=== PATIENT | male | born 1965 | race Caucasian/White ===

== ENCOUNTER 2017-02-04 16:33 | Inpatient (IN) | payer MEDICARE, OTHER ==
[~2017-02-04] VITALS: Ht 172.7 cm; Wt 88.0 kg
[2017-02-04] VITALS (7 sets, daily range): BP systolic 81–107; BP diastolic 40–64; PULSE 71–100; RESP 16–18; O2SAT 94–100
[~2017-02-04 16:33] MED LIST: AMLO10TA3 PO; ASPI-973 PO; CARV25TA2 PO; CINA60TA PO; COLC0.6C3 PO; ERGO500050 PO; FRSM80T PO; HYDR-3090 PO; MYCO500T PO; NEPHVIT PO; OMEG1000 PO; TACR1CAP PO; TAMS0.4C29 PO; ZYL100 PO; [UNRECOGNIZED DRUG - CODE] PO
--- NOTE | 2017-02-04 16:42 | ED.REPORT ---
HPI-Syncope Date of Service Feb 04, 2017 ED Provider: Agustin Medellin DO Pt is a 51 y.o. male with a hx of renal failure on dialysis who presents to the ED via EMS after a syncopal episode prior to arrival. Pt states that he had just got home from dialysis and he began to feel lightheaded, he then experienced a syncopal episode causing him to fall to the ground. When he fell he believes he hit his head and landed on his left should. Pt reports associated head, neck, and left shoulder pain. He denies chest pain, SOB, nausea , vomiting, and diarrhea. Nursing Notes Stated Complaint: FELL Chief Complaint: Multiple Trauma/Fall Nursing Notes Reviewed: Yes Allergies: Coded Allergies: diphenhydramine (Verified Adverse Reaction, Severe, anxiety, 02/04/17) Scheduled Aspirin (Aspirin) 81 Mg Tablet 81 MG PO DAILY Cholecalciferol (Vitamin D3) (Vitamin D) 50,000 Unit Capsule 50,000 UNIT PO qweek Cinacalcet HCl (Sensipar) 60 Mg Tablet 90 MG PO DAILY Lanthanum Carb Chew (Fosrenol Chew) 1,000 Mg Chew 1,000 MG PO TIDWM Mycophenolate Mofetil (Cellcept) 500 Mg Tablet 500 MG PO DAILY [employer]-3 Fatty Acids (Fish Oil Concentrate) 1,000 Mg Capsule 1,000 MG PO DAILY Tacrolimus (Prograf) 1 Mg Capsule 2 MG PO BID Vit B Cmplx 3/FA/Vit C/Biotin (Isabel-Dorene Rx Tablet) 1 Each Tablet 1 EACH PO DAILY Vitamin E Acetate (Vitamin E) 400 Unit Capsule 400 UNIT PO DAILY Scheduled PRN Acetaminophen (Acetaminophen) 325 Mg Tablet 325-650 MG PO HS PRN PRN For Pain General Time Seen by Provider: 16:42 Chief Complaint Lost consciousness Syncope Description: Single episode Hx Obtained From: Patient Arrived By: Ambulance Onset Occurred: Just prior to arrival Context of Onset: Occurred at home Progression Since Onset: Resolved Location: : Head: Neck Quality: Painful Severity: Current: Severe Past Medical History Past Medical History History of DVT Reports: Hypertension Reports: Renal failure Past Surgical History Transplanted kidney in 2002 Smoking History Former Smoker Social History Alcohol Use: Denies alcohol use Drug Use: Denies drug use Ambulatory Status Independent Review of Systems Respiratory: Denies: Shortness of breath Cardiovascular: Denies: Chest pain GI: Denies: Diarrhea, Nausea, Vomiting Musculoskeletal: Reports: Joint pain (Left shoulder), Neck pain Neurologic: Reports: Headache, Lightheaded, Syncope Complete sys rev & neg: except as marked. Physical Exam Initial Vital Signs Vital Signs (First) Date Time Temp Pulse Resp B/P Pulse Ox O2 Delivery O2 Flow Rate FiO2 02/04/17 16:41 36.2 97 17 90/64 99 Room Air Initial VS: Reviewed Abdomen / GI: Soft, Non-tender, No distention Skin: Warm, Dry, No cyanosis Psychiatric: Mood/affect normal, Behavior normal, Normal thought content General/Constitutional: Awake, Alert, Well appearing, Well developed, Well hydrated, Well nourished, Not toxic appearing Respiratory / Chest: Atraumatic, Breath sounds NL, Breath sounds = bilat, No respiratory distress, No rales, No rhonchi, No wheezing, No retractions, No stridor Cardiovascular: Heart rate NL, Regular rhythm, Peripheral circulation NL Heart Sounds / Murmur: Positive: Systolic murmur present.. (ejection murmur) Lower Extremity / Pelvis / MS: Atraumatic, Inspection NL, Neurologic intact, Vascular intact Neurologic: Oriented X3, Speech NL Head / Eyes: Normocephalic, PERRL Trauma - General: Positive: Laceration (2cm laceration over left eyebrow) Neck: Atraumatic Neck / Muscle Tenderness: Positive: Midline tenderness mid Upper Extremity / MS: No deformity, Neurologic intact, Vascular intact Upper Ext Brief Normals: Shoulder R exam normal, Arm R exam normal Clavicle / Shoulder Girdle: Positive: Clavicle tender L... Left Shoulder: Positive: Tenderness present... Interpretation & Diagnostics Lab Results Interpretation Result Diagram: 02/04/17 1645 02/04/17 1645 Test 02/04/17 16:45 White Blood Count 9.2th/mm3 (3.8-10.1) Red Blood Count 4.77mil/mm3 (4.40-5.80) Hemoglobin 16.3g/dL (13.8-17.2) Hematocrit 46.6% (41.0-50.0) Mean Corpuscular Volume 97.7fL (81-100) Mean Corpuscular Hemoglobin 34.2pg (27.0-35.0) Mean Corpuscular Hemoglobin Concent 35.0% (32.0-37.0) Red Cell Distribution Width 13.9% (12.3-15.4) Platelet Count 198bil/L (150-400) Neutrophils (%) (Auto) 55.6% (40-74) Lymphocytes (%) (Auto) 35.1% (14-46) Monocytes (%) (Auto) 6.7% (4-12) Eosinophils (%) (Auto) 1.6% (0-5) Basophils (%) (Auto) 0.7% (0-3) Sodium Level 138mEq/L (134-144) Potassium Level 3.3mEq/L (3.5-5.2) Chloride Level 89mEq/L (97-108) Carbon Dioxide Level 21mmol/L (18-29) Blood Urea Nitrogen 23mg/dL (6-24) Creatinine 7.91mg/dL (0.76-1.27) Estimat Glomerular Filtration Rate 8mL/min (>59) Glucose Level 168mg/dL (60-99) Calcium Level 8.8mg/dL (8.5-10.1) Magnesium Level 1.8mg/dL (1.6-2.6) Total Bilirubin 0.5mg/dL (0.0-1.2) Aspartate Amino Transf (AST/SGOT) 28U/L (0-50) Alanine Aminotransferase (ALT/SGPT) 32U/L (0-44) Alkaline Phosphatase 78U/L (25-150) Troponin T < 0.010ug/L (0.0-0.011) Total Protein 8.8g/dL (6.4-8.4) Albumin 5.0g/dL (3.4-5.0) X-Ray Chest Interpretation Chest Xray Interpretation: IMPRESSION: Acute disease is not seen in the chest. Dictated by: Christoph Box M.D. on 02/04/2017 at 17:20 Approved by: Christoph Box M.D. on 02/04/2017 at 17:21 X-Ray Interpretation Xray Interpretation: IMPRESSION: Nondisplaced left clavicular fracture. Best seen on the CT of the cervical spine. Dictated by: Christoph Box M.D. on 02/04/2017 at 17:28 Approved by: Christoph Box M.D. on 02/04/2017 at 17:28 Study Performed: PROCEDURE: X-RAY LEFT SHOULDER, MINIMUM TWO VIEWS ([id number]) Xray Interpretation: IMPRESSION: Mid shaft left clavicular fracture, minimally angulated. No fracture margin displacement or additional injury is seen. Dictated by: Troy Morrell M.D. on 02/04/2017 at 16:32 Approved by: Troy Morrell M.D. on 02/04/2017 at 16:34 Study Performed: PROCEDURE: X-RAY LEFT CLAVICLE, COMPLETE ([id number]) CT Head Interpretation IMPRESSION: No intracranial abnormality. Dictated by: Christoph Box M.D. on 02/04/2017 at 17:21 Approved by: Christoph Box M.D. on 02/04/2017 at 17:23 CT C-Spine Interpretation IMPRESSION: No acute bony abnormality in the cervical spine. Moderate disc degenerative disease at C5-6 and C6-7. Acute fracture seen in the margins of the lower cervical spine axial images involving the left clavicle. Dictated by: Christoph Box M.D. on 02/04/2017 at 17:23 Approved by: Christoph Box M.D. on 02/04/2017 at 17:27 Procedures Laceration Management Time: 18:02 Procedure Performed by: ED physician Consent / Setup / Site Prep: Informed consent provided, Consent from patient , Time-out performed, Hand hygiene observed, Stand sterile technique Location of Wound: 2.5cm laceration over left eyebrow Wound Length: 2 cm Local Anesthesia: Lidocaine w epi 1% Wound Preparation: Betadine Irrigation: Copious Foreign Body Explore / Removal: Explored for foreign body Undermining / Margins: Undermining minimal Repair Skin: ___ O (5), Nylon # Sutures - Skin: 7 Closure Layers: 1 Suture Technique: Simple Post-Procedure / Complications: Antibiotic oint applied, Dressing applied, No complications, Condition improved, Tolerated procedure well, Patient stable Re-Eval/Medical Decision Med Decision/Clinical Course 51-year-old renal failure patient presents after suffering a syncopal episode. He was dialyzed today. He got home and felt dizzy and passed out hitting his head suffering a laceration. He also fell down and broke his left collarbone. He is found to be hypotensive in the field and again in the emergency department. He was carefully fluid resuscitated. He was then started on oral medications to raise his blood pressure. I fixed his wound. His EKG does not look like he was having an DC. He will be admitted to PCU for further care and observation. Re-Evaluation/Progress : Time of Eval: 18:02 Patient Status: Condition improved Re-Evaluation/Progress Note: Pt rechecked. Laceration management performed. Consultation : Referral / Consult Name: Taurus Riggs MD Call Returned at: 17:50 Dye Range Operator: Will see patient, Agrees with eval, Agrees with plan, Accepts admit Note: Discussed pt condition. Accepts admit. Discharge & Departure Shift Change Sign-Out Response to Therapy: Improved Impression: Primary Impression: Syncope Syncope type: unspecified Qualified Code: R55 - Syncope and collapse Additional Impressions: Hypotension Hypotension type: hemodialysis-associated hypotension Qualified Code: I95.3 - Hypotension of hemodialysis Closed head injury Encounter type: initial encounter Qualified Code: S09.90XA - Unspecified injury of head, initial encounter Laceration Fx clavicle Encounter type: initial encounter Clavicle location: lateral end Fracture type: closed Fracture alignment: displaced Laterality: left Qualified Code : S42.032A - Displaced fracture of lateral end of left clavicle, initial encounter for closed fracture Disposition: ADMITTED TO HOSPITAL Discharge Condition All VS Reviewed: Yes Referrals: Luan Guo MD (PCP) Crit Care Except Billable Proc Time Spent: 30-74 minutes Services Performed: Patient management by me, Time spent at bedside, Reviewing test results, Reviewing imaging, Discussing patient care, Documentation in record, Time with fam/surrogate Scribe Attestation Portions of this note were transcribed by Remington Fowler. I, Dr. Medellin personally performed the history, physical exam and medical decision-making; I reviewed and confirmed the accuracy of the information in the transcribed note. Signed by : Dena Barros, 02/04/17 and 190. copies to: Luan Guo MD, Todd P DO Feb 04, 2017 16:42 REMINGTON FOWLER Feb 04, 2017 17:08
[2017-02-04] MEDS ORDERED: 0.9% Sodium Chloride 500 ML IV ONE ×2 (16:45→17:35)
[2017-02-04] MEDS ORDERED: TdaP Vaccine 0.5 mL Inj IM ONE (16:50)
[2017-02-04] MEDS: fentaNYL-PF 50 mCg/mL 2 mL Inj IVPUSH PRN ×3 (16:54→20:35)
[2017-02-04 16:56] LABS: BASOPHILS % (AUTO) 0.7 % (0-3); EOSINOPHILS % (AUTO) 1.6 % (0-5); MONOCYTES % (AUTO) 6.7 % (4-12); Mean Corpuscular Hemoglobin 34.2 pg (27.0-35.0); Mean Corpuscular Volume 97.7 fL (81-100); NEUTROPHILS % (AUTO) 55.6 % (40-74); Platelet Count 198 bil/L (150-400)
--- NOTE | 2017-02-04 17:22 | DRSVH ---
PROCEDURE: X-RAY CHEST ONE VIEW, PORTABLE ([id number]) INDICATIONS: syncope, left collar bone injury TECHNIQUE: One view of the chest was acquired. COMPARISON: [facility], , CHEST 2VW, 05/31/2012, 17:11. FINDINGS: Surgical changes and devices: combustion analyst leads are seen over the chest. Vascular clips in the ga llbladder bed. Lungs and pleura: No pleural effusions or pneumothorax. Lungs are clear. Mediastinum: Mediastinal contours appear normal. Heart size is normal. Bones and chest wall: No suspicious bony lesions. Old healed clavicular fractures. Overlying soft ti ssues appear unremarkable. IMPRESSION: Acute disease is not seen in the chest. Dictated by: Christoph Box M.D. on 02/04/2017 at 17:20 Approved by: Christoph Box M.D. on 02/04/2017 at 17:21
--- NOTE | 2017-02-04 17:25 | DRSVH ---
PROCEDURE: CT BRAIN WITHOUT CONTRAST ([id number]) INDICATIONS: syncope, head injury TECHNIQUE: Noncontrast 4.5 mm thick angled axial sections acquired from the foramen magnum to the vertex, with c oronal reformats. COMPARISON: [facility], CT, BRAIN W/O CONTRAST, 02/18/2010, 15:51. FINDINGS: Image quality: Good CSF spaces: Basal cisterns are patent. No extra-axial fluid collections. Ventricles are normal in size and shape. Brain: No midline shift. No intracranial masses or hemorrhage. Cornelius-white matter interface is norm al. Skull and face: Calvarium and visualized facial bones are intact, without suspicious lesions. Sinuses: Visualized sinuses and mastoids are clear. IMPRESSION: No intracranial abnormality. Dictated by: Christoph Box M.D. on 02/04/2017 at 17:21 Approved by: Christoph Box M.D. on 02/04/2017 at 17:23
--- NOTE | 2017-02-04 17:29 | DRSVH ---
PROCEDURE: CT CERVICAL SPINE WITHOUT CONTRAST ([id number]) INDICATIONS: syncope, head injury TECHNIQUE: Noncontrast 3 mm thick sections acquired from the skull base to the T4 level. Sagittal and coronal r eformats were then constructed. For radiation dose reduction, the following was used: automated exp osure control, adjustment of mA and/or kV according to patient size. COMPARISON: None. FINDINGS: Image quality: Excellent. Bones: On the margin of the image there is a mid shaft left clavicular fracture. No fracture or dislo cation of the cervical spine is seen. There is moderate disc degenerative disease at the C5-6 and C6- 7 levels. Visualized superior ribs are intact. Soft tissues: Prevertebral soft tissues are normal in thickness. No paravertebral hematomas. No ap ical pneumothoraces. Bilateral to nsilliths are present. IMPRESSION: No acute bony abnormality in the cervical spine. Moderate disc degenerative disease at C5 -6 and C6-7. Acute fracture seen in the margins of the lower cervical spine axial images involving the left clavic le. Dictated by: Christoph Box M.D. on 02/04/2017 at 17:23 Approved by: Christoph Box M.D. on 02/04/2017 at 17:27
--- NOTE | 2017-02-04 17:30 | DRSVH ---
PROCEDURE: X-RAY LEFT SHOULDER, MINIMUM TWO VIEWS ([id number]) INDICATIONS: FALL TECHNIQUE: 3 views of the shoulder were acquired. COMPARISON: [facility], CT, CT CERVICAL SPINE WO CON, 02/04/2017, 16:59. FINDINGS: Bones: Acute nondisplaced mid clavicular shaft fracture. No fracture of the scapula or humerus or vis ualized ribs. No suspicious bony lesions. Visualized ribs appear intact. Soft tissues: No suspicious soft tissue calcifications. IMPRESSION: Nondisplaced left clavicular fracture. Best seen on the CT of the cervical spine. Dictated by: Christoph Box M.D. on 02/04/2017 at 17:28 Approved by: Christoph Box M.D. on 02/04/2017 at 17:28
[2017-02-04 17:33] LABS: Magnesium 1.8 mg/dL (1.6-2.6)
--- NOTE | 2017-02-04 17:35 | DRSVH ---
PROCEDURE: X-RAY LEFT CLAVICLE, COMPLETE ([id number]) INDICATIONS: syncope, left collar bone injury TECHNIQUE: 2 views of the clavicle were acquired. COMPARISON: [facility], CT, CT CERVICAL SPINE WO CON, 02/04/2017, 16:59. [facility], CR, XR SHOULDER MIN 2VW LT, 02/04/2017, 16:32. FINDINGS: Bones: No dislocations. No suspicious bony lesions. There is a mid shaft left clavicular fracture, which was initially visualized at the margin of the image field of view during cervical CT scanning earlier today. This appears in apposition, and likely is only slightly angulated. No additional tra shira to the seen. Soft tissues: No suspicious soft tissue calcifications. IMPRESSION: Mid shaft left clavicular fracture, minimally angulated. No fracture margin displacement or additional injury is seen. Dictated by: Troy Morrell M.D. on 02/04/2017 at 16:32 Approved by: Troy Morrell M.D. on 02/04/2017 at 16:34
[2017-02-04] MEDS ORDERED: Lidocaine 1%-Epi 1:100,000 20 mL Inj ONE (17:38)
[2017-02-04 17:41] LABS: TROPONIN T < 0.010 ug/L (0.0-0.011)
[2017-02-04] MEDS ORDERED: Ondansetron 2 mg/mL 2 mL Inj IVPUSH PRN (18:05)
--- NOTE | 2017-02-04 18:37 | PCM.HPMED ---
Subjective Date of Service Feb 04, 2017 Primary Provider: Admitting Physician: Primary Care Physician: Luan Guo MD Attending Physician: Chief Complaint: Syncope s/p fall History of Present Illness: Pt is a 51 y.o. male with a hx of ESRD on HD who presented to the hospital after he had 3 episodes of syncope today . Patient had dialysis today and was doing fine . He stated he insisted with staff to complete his dialysis time because for some reason the nurse wanted to cut it shorter this time . He stated he felt fine after dialysis and drove home . Later he started feeling lightheaded, then while trying to stand up form sitting position he experienced a syncopal episode causing him to fall to the ground. He lost consciousness a couple of minutes and had another episode while trying to stand . He had a third episode trying to reach the phone and was able to call his mother to come over after the 3rd episode. EMT was called and he was brought to the hospital. Patient suffered a laceration of his dyana-orbital area on the left and a left clavicle fracture. His systolic BP was 80 . His only complaints is shoulder pain otherwise denies chest pain, shortness of breath , no palpitation, no abdominal pain, no nausea , no vomiting no fever, no chills Review of Systems: Review of system x 10 point is negative except for fall and syncope as described in HPI Allergies Coded Allergies: diphenhydramine (Verified Adverse Reaction, Severe, anxiety, 02/04/17) Home Medications Allopurinol (Allopurinol) 100 Mg Tablet 100 MG PO DAILY Amlodipine (Amlodipine) 10 Mg Tablet 10 MG PO DAILY Aspirin (Aspirin) 81 Mg Tablet 81 MG PO DAILY Carvedilol (Carvedilol) 25 Mg Tablet 25 MG PO BID Cinacalcet HCl (Sensipar) 60 Mg Tablet 90 MG PO DAILY Ergocalciferol (Vitamin D2) (Drisdol) 50,000 Unit Capsule 50,000 UNIT PO Q7D Furosemide (Furosemide) 80 Mg Tab 80 MG PO BID Lanthanum Carb Chew (Fosrenol Chew) 750 Mg Tab.chew 750 MG PO TID Mycophenolate Mofetil (Cellcept) 500 Mg Tablet 500 MG PO BID [place]-3 Fatty Acids (Fish Oil Concentrate) 1,000 Mg Capsule 1,000 MG PO TID Tacrolimus (Prograf) 1 Mg Capsule 1 MG PO BID Tamsulosin ER (Tamsulosin ER) 0.4 Mg Cap.er.24h 0.4 MG PO DAILY Vitamin B Complex/Vit C (Isabel-Dorene Tablet) 1 Tab Tab 1 TAB PO DAILY PMH History of DVT, Hypertension, ESDR on HD Surgical History Transplanted kidney in 2002 Family History Family history reviewed and is non contributor to the present illness Social History Hx Alcohol Use: No Hx Substance Use: No Hx Tobacco Use: No Smoking Status: Former Smoker Living Arrangement: Alone Exam Vital Signs Vital Sign - Last Date Time Temp Pulse Resp B/P Pulse Ox O2 Delivery O2 Flow Rate FiO2 02/04/17 16:41 36.2 97 17 90/64 99 Room Air Exam *Medical Exam Exam Vital Signs Vital Sign - Last Date Time Temp Pulse Resp B/P Pulse Ox O2 Delivery O2 Flow Rate FiO2 02/04/17 18:56 36.8 77 16 107/63 98 Room Air General: Alert, chronically ill appearing . NAD Eyes: PERRLA, EOMI Neck: Supple, No Thyromegaly Chest & Lungs: Clear to auscultation & percussion, No adventitious breath sounds Cardiovascular: Regular Rate/Rhythm, Normal S1, Normal S2, No Murmurs/Rubs/ Gallops Abdomen: Non-tender, Non-distended, Benign, No masses, No hepatosplenomegaly, Other (Papable mass at left Lower quadrant compatible with position of transplanted kidney ) Extremities: No cyanosis/clubbing/edma bilat, No Edema Neurological: Grossly Neurologically Intact Lab and Diagnostics Result Diagram: 02/04/17 1645 02/04/17 1645 X-Rays, CTs and MRIs Head CT scan reviewed : No intracranial abnormality. C-spine MRI : No acute bony abnormality in the cervical spine. Moderate disc degenerative disease at C5-6 and C6-7. Acute fracture seen in the margins of the lower cervical spine axial images involving the left clavicle. Chest X-ray : negative Clavicle X-ray : Mid shaft left clavicular fracture, minimally angulated. No fracture margin displacement or additional injury is seen. Assessment & Plan 1. Hypovolemic Hypotension 2. Syncope and Fall. 3. Non displaced left Clavicular Fracture ( Mid shaft left clavicular fracture , minimally angulated ) 4. ESRD on HD Telemetry monitoring . Syncope is likely due to hypovolemia . ( His symptoms started after HD) . No evidence of sepsis or infection . IVF x 1.5 liters total given in ER . I would hold any further IVF at this time . Start Midodrine 5 mg PO TID and see how he responds to that . Pain control. Orthopedist for minimally angulated clavicular fracture . He will unlikely need surgery . Neprhology consulted by ER. Continue HD while hospitalized . Home medications reviewed and reconciled . Heparin for DVT prophylaxis . Pain Evaluation: Adequate Pain Control VTE Prophylaxis: Sub-Q Heparin (Unfractionated) Resuscitation Status: CPR: Attempt Resuscitation Time spent 75 minutes Taurus Riggs MD Feb 04, 2017 18:37 Taurus Riggs MD Feb 04, 2017 18:37
[2017-02-04] MEDS ORDERED: VIT1TABL57 PO (19:11)
[2017-02-04] MEDS ORDERED: VITA400C66 PO (19:11)
[2017-02-04] MEDS ORDERED: LANT1000 PO (19:11)
[2017-02-04] MEDS ORDERED: ACET325T51 PO (19:15)
[2017-02-04] MEDS ORDERED: CHOL500050 PO (19:27)
[2017-02-04] MEDS: Heparin 5,000 Unit/mL Inj SUBQ SCH (21:07)
[2017-02-04] MEDS ORDERED: HYDROmorphone 1 mg/mL Inj IVPUSH PRN (22:00)
[2017-02-04] MEDS: HYDROmorphone 1 mg/mL Inj IVPUSH PRN (22:18)
[2017-02-05] VITALS (8 sets, daily range): BP systolic 89–113; BP diastolic 41–74; PULSE 69–82; RESP 15–16; O2SAT 94–100
[2017-02-05] MEDS: HYDROmorphone 1 mg/mL Inj IVPUSH PRN ×2 (01:59→06:16)
[2017-02-05 05:12] LABS: BASOPHILS % (AUTO) 0.6 % (0-3); EOSINOPHILS % (AUTO) 2.6 % (0-5); MONOCYTES % (AUTO) 9.3 % (4-12); Mean Corpuscular Hemoglobin 32.8 pg (27.0-35.0); Mean Corpuscular Volume 100.5 fL (81-100); NEUTROPHILS % (AUTO) 63.2 % (40-74); Platelet Count 175 bil/L (150-400)
--- NOTE | 2017-02-05 06:25 | NUR ---
Pt upset this am. States that now the pain meds aren't working and he's really upset that the swing doctor last night forgot to order pain meds and had to get order from hospitalist. Pt states he hasn't slept all night and has been in pain. Upon hourly rounds pt was sleeping and did not request anymore prn pain meds. pt's iv went bad and he was refusing another one because the pain meds "aren't working". Persuaded pt to have a new iv started so he can get some relief.
--- NOTE | 2017-02-05 08:25 | NUR ---
Nausea patient c/o nausea and vomiting. PRN dialudid for pain was given approx 2 hours ago per patient. Student medical doctor at bed sdie and aware r/t left shoulder pain and nausea. PRN anti emetic given for nausea with effective results. patient speaking to medical student doctor r/t pain and nausea. Continue to monitor pain and nausea.
[2017-02-05] MEDS ORDERED: 0.9% Sodium Chloride 250 ML IV ONE (08:40)
[2017-02-05] MEDS: Heparin 5,000 Unit/mL Inj SUBQ SCH ×2 (09:01→22:35)
--- NOTE | 2017-02-05 12:55 | NUR ---
Evaluation completed. Please go to "Notes" then click on "Assessments and Notes" (bottom left corner of screen). Then select appropriate discipline tab on top of screen.
--- NOTE | 2017-02-05 13:35 | NUR ---
Social Work: Initial Assessment D: Per EMR review, pt is a 51 year old male admitted for syncope and hypotension. Pt is Medicare with [facility] Health Insurance Pool supplement; pt has no LTC insurance or VA benefits. PCP is Luan Guo MD. NOK is Opal Carlson, mother, . Advanced directives not completed- information provided. Readmit score not entered at this time. RIVET HAMMER MACHINE OPERATOR met with pt at bedside. Sw role and contact information provided. See initial assessment. Pt lives in a single-story home, alone, with 1 step to enter. Pt is I with ADLs and uses no DME. Pt continues to drive and has never had HH or jail. Pt states he has no concerns about d/c home when ready and that his mother will pick him up. Pt was able to work with PT and was cleared for d/c home and will likely require outpatient PT for his clavicle fracture. Pt declined outpatient PT provider list. Pt completes dialysis at [facility]. A: Pt who is I at baseline. P: Anticipate pt to discharge home via POV once medically stable; RIVET HAMMER MACHINE OPERATOR to continue to follow. GRETCHEN Lebron Addendum: 02/05/17 at 1350 by MERE LOO Amended: Links added.
--- NOTE | 2017-02-05 15:21 | CONS ---
[address] [address] CONSULTATION REPORT PATIENT: MICHEAL GORDON : 1965 MR#: [id number] ADMIT: 02/04/2017 JOB ID: [id number] CORRECTED REPORT: DATE OF SERVICE: 02/05/2017 INPATIENT HOSPITAL CONSULTATION: ICD-10 code 617116 CHIEF COMPLAINT: This is a 51-year-old male with end-stage renal disease on chronic hemodialysis. I was asked to see him in orthopedic consultation by the medical service. HISTORY OF PRESENT ILLNESS: The patient evidently underwent dialysis on February 04, 2017, went home, and had a syncopal episode. He struck his head and injured his left shoulder. The patient sustained a left clavicular fracture. The patient was admitted to the hospitalist service. He did sustain a laceration over his left eyebrow that was treated. Of significance, on prior history the patient has had a fracture of the left clavicle in about 1988 and a right clavicular fracture in 2002. These were treated closed. ALLERGIES: DIPHENHYDRAMINE. HOME MEDICATIONS: Include allopurinol, amlodipine, aspirin, carvedilol, Sensipar, vitamin D 2, Lasix, CellCept, omega fatty acids, Prograf, tamsulosin ER, vitamin B. PAST MEDICAL HISTORY: Pertinent for hypertension, end-stage renal disease on hemodialysis, and history of DVT. PAST SURGICAL HISTORY: He had a renal transplant in 2002 that lasted about eight years and then he rejected the transplant and has been back on dialysis for at least three years. FAMILY HISTORY: Pertinent for mother with severe rheumatoid arthritis. SOCIAL HISTORY: The patient does not smoke or drink at this time. Used to smoke. PHYSICAL EXAMINATION: A 172 cm male, 86 kg. The patient is alert and oriented. He has a sutured laceration over his left brow. Appears to be oriented. Vital signs temperature 36.7, pulse of 74, respirations 16, blood pressure 105/66, pulse ox 97. The patient has bruising over the left shoulder. There is no tenting of the skin. No significant prominence of the clavicle. He has some pain over the left elbow with some minor bruising and minor swelling. Motor, sensory, and vascular testing are intact left wrist and hand. He has an IV placement in his left hand. His dialysis shunt is in his right upper extremity. IMAGING: X-rays show that he has a left clavicular fracture with no significant displacement. There is also some old deformity from a prior old left clavicular fracture. LABORATORY TESTING: White count 7200, hemoglobin 13.5, hematocrit 41.3, platelet count 175,000. Sodium 134, potassium 4.0, chloride 90, CO2 of 22, BUN 35, creatinine 9.96, glucose 105, calcium 7.5. IMPRESSION: Left midshaft clavicular fracture. No significant displacement. History of prior left clavicular fracture with some old angular deformity. Left elbow contusion. Cannot rule out possible additional injury to the left elbow. PLAN: The patient is in a shoulder immobilizer. I have suggested that he may try to do at least some wrist and hand motion to avoid stiffness. As he becomes more comfortable over the next day or so it would be good for him to gently try to straighten the elbow a little so he avoids excessive stiffness in the elbow. Will do the x-rays to make sure that there is no actual fracture of the elbow. Clinically the elbow does not appear to be unstable. The patient will be discharged from the hospital when the hospitalist service deems that he is medically stable. He will need to have his sutures removed over his left brow at about 10 days and this could be done perhaps even in the [facility] or when he has dialysis. Would like to see the patient in the office sometime the week of February 15 with x-rays of the left clavicle. I have instructed the patient that this fracture in this position does not need surgical intervention. I have also suggested that he try to sleep in a reclining chair as it would be more comfortable for him. If he has any questions or concerns he certainly may contact the office. The nursing staff should call to get him a followup appointment in Orthopedics over at [facility] some time the week of February 05. CC: [facility] - Orthopedics Corrected by MADISON 02/12/17 at 11:51am Corrected patient.
[2017-02-05] MEDS ORDERED: Polyethylene Glycol (PEG) 17 Gm Powder PO PRN (15:35)
--- NOTE | 2017-02-05 15:54 | CONS ---
[address] [address] CONSULTATION REPORT PATIENT: MICHEAL GORDON : 1965 MR#: [id number] ADMIT: 02/04/2017 JOB ID: [id number] DATE OF SERVICE: 02/05/2017 NEPHROLOGY CONSULTATION: REASON FOR CONSULTATION: Management of end-stage renal disease. CHIEF COMPLAINT: Syncope and head injury. PRESENT ILLNESS: This is a 51-year-old male with significant past medical history of end-stage renal disease on hemodialysis every Wednesday, , Wednesday, failed a transplanted kidney graft, hypertension, history of DVT who came to the hospital due to episodes of syncope and head injury. The patient reported that he had dialysis yesterday without complications. They removed 3 L. He is a patient of Dr. Mario Guo and Dr. Hearn. I have contacted Dr. Hearn. Dr. Hearn stated that he had increased his estimated dry weight from 84 to 86 kg. Prior to dialysis, the patient's weight was 87.7. He left at 85.8 kg. His starting blood pressure was 176/68, and went down to 95/60 at the end of the treatment. He refused to receive any normal saline at that moment. The patient left the dialysis unit, went to [facility]. After he got home, he started feeling dizzy and lightheaded. He had two episodes of syncope. He had a head injury and has a severe left shoulder pain. She was trying to contact his mom. Later on, he was brought to the emergency department for further investigation. He was found to have injury on the left periorbital area and it was sutured. Also found to have the left clavicular fracture. The initial blood pressure was 90/64. The lowest blood pressure overnight was 81/40. He received IV fluids 1.5 L in the emergency department. During my visit today, the patient is having left shoulder pain. He requested for more pain medications. PAST MEDICAL HISTORY: 1. End-stage renal disease secondary to IgA nephropathy status post donor kidney transplant in 2002 that lasted for about eight years. Also he returned back to dialysis a couple of years ago. 2. Hypertensive nephrosclerosis. 3. History of DVT. SURGICAL HISTORY: 1. Status post right AV fistula creation. 2. donor kidney transplant in 2002. FAMILY HISTORY: No kidney disease in the family. SOCIAL HISTORY: The patient is a former smoker. Denies current use of alcohol, tobacco or illicit drugs. ALLERGIES: DIPHENHYDRAMINE. REVIEW OF SYSTEMS: Fourteen point review of system was performed. PHYSICAL EXAM: Vitals: Temperature 36.7, pulse 74, respiratory rate 16, blood pressure 105/66, O2 sat 97% room air. General appearance: Awake, alert and oriented x3. No acute distress. HEENT: No pallor. No icteric sclerae. Sutured noted above the left eyebrow. No active bleeding. No lymphadenopathy. No thyroid enlargement. No JVD. Heart: Regular rate and rhythm. Normal S1, S2. No murmurs, rubs or gallops. Lungs: Clear to auscultation bilaterally. Abdomen: Soft, active bowel sounds. Bulging area noted on the left lower quadrant where the transplanted kidney is. Extremities: No edema, cyanosis or clubbing of fingers. Right arm AV fistula with good thrill. LABORATORY: Sodium 134, potassium 4.0, chloride 90, bicarbonate 22, BUN 35, creatinine 9.96. WBC 7.2, hemoglobin 13.5. ASSESSMENT: 1. Syncope secondary to intravascular volume depletion. 2. Hypotensive. 3. Hypotension secondary to intravascular volume depletion. 4. Head injury. 5. Nondisplaced left clavicle fracture. 6. End-stage renal disease, on hemodialysis every Wednesday, , Wednesday. 7. History of IgA nephropathy. 8. Status post donor kidney transplant in 2002 complicated by graft failure eight years later. PLAN: Per renal standpoint, there is no urgency for dialysis today. We will resume his immunosuppressive medications including tacrolimus and CellCept. We will arrange for hemodialysis tomorrow without fluid removal. Recommend to give normal saline 150 cc/hour. Thank you for the consultation. We will monitor along with you.
[2017-02-05] MEDS ORDERED: 0.9% Sodium Chloride 1,000 ML IV SCH (16:00)
--- NOTE | 2017-02-05 16:21 | DRSVH ---
PROCEDURE: X-RAY LEFT ELBOW COMPLETE, MINIMUM THREE VIEWS ([id number]) INDICATIONS: LEFT ELBOW PAIN TECHNIQUE: 3 views of the elbow were acquired. COMPARISON: [facility], XA, ARTERIO VENOUS FISTULOGRAM (PNL), 08/05/2016, 11:08. FINDINGS: Bones: No fractures or dislocations. No suspicious bony lesions. Prominent bones are olecranon pro cess. Soft tissues: No elbow joint effusion. There is a large ossified body measuring roughly 2.5 cm in th e anterior medial aspect of the elbow. There is calcification and soft tissue swelling adjacent to ol ecranon. There multiple surgical clips. IMPRESSION: 1. A large calcified body in the anterior medial aspect of the elbow. If clinically indicated, advan brisa imaging such as CT or MRI may be helpful for further evaluation. 2. Prominent olecranon bone spur. There is calcification and soft tissue swelling over the olecranon consistent with enthesopathy. Dictated by: Regino Burger [facility] Interpreted: Diana Rogers MD on 02/05/2017 at 16:19 Transcribed by: RONNI on 02/05/2017 at 16:21 Approved by: Diana Rogers M.D. on 02/05/2017 at 21:01
--- NOTE | 2017-02-05 16:49 | NUR ---
Pain/Bowel Meds Pt upset at beginning of shift as he is in pain and IV Dilaudid had caused him to be nauseous. MD ordered 2mg IV push Morphine. Pt tolerated IV push with some relief, but complained of slight itching around IV site . MD ordered 50mg PO of Tramadol BID, administered 1630, with relief. Pt has not had bowel movement in 2 days, per MD, pt to start bowel medication to prevent opiod associated constipation. Pt administered 200mg PO Docusate.
--- NOTE | 2017-02-05 18:28 | PCM.PNMED ---
Subjective Date of Service Feb 05, 2017 Subjective overnight: Patient became nauseated after being given Dilaudid. No acute events otherwise noted. today: The patient states that he is feeling the pain in his clavicle. He states that his pain has not be well controlled to this point. He denies any not ongoing nausea. He states that he normally gets fairly constipated after receiving opiates in the past. Other than the pain in his clavicle he also has pain in his left elbow, and has seen orthopedic surgery who was ordered x-rays. The patient states that Dr. Alexis Giraldo will not be performing surgery on his clavicle. The patient states that he would like to stay overnight to make sure that the pain is well-controlled and received dialysis here tomorrow. Exam Vital Signs Vital Sign - Last Date Time Temp Pulse Resp B/P Pulse Ox O2 Delivery O2 Flow Rate FiO2 02/05/17 11:57 36.7 74 16 105/66 97 Room Air Intake and Output 02/04/17 02/04/17 02/05/17 Cumulative From/Thru 14:59 22:59 06:59 02/04/17 16:41 - 02/05/17 05:44 Intake Total 1000 ml 800 ml 1800 ml Balance 1000 ml 800 ml 1800 ml Intake Oral 800 ml 800 ml IV Total 1000 ml 1000 ml # Voids 1 1 Exam General: Chronically ill appearing obese gentleman in no acute distress lying in bed Eyes: PERRLA, EOMI, anicteric sclera, noninjected conjunctiva, 2020 vision in left eye, 20/25 vision in right eye, intact peripheral visual wick Neck: Supple, trachea midline, no cervical lymphadenopathy, no thyroid nodules on palpation Cardiovascular: Regular Rate/Rhythm, Normal S1, Normal S2, No Murmurs/Rubs/ Gallops Lungs: Clear to auscultation & percussion, No wheezing rales or rhonchi Abdomen: NABS, Non-tender, Non-distended, Benign, palpable mass in the left lower quadrant consistent with transplanted kidney, No hepatosplenomegaly Extremities: No cyanosis/clubbing/edema, pulses intact. Dorsalis pedis and radial arteries bilaterally, pain on palpation of the left elbow, fistula noted in right antecubital fossa as well as on right lateral upper extremity with signs of prior venipuncture Skin: Warm and dry Neurological: Cranial nerves II through XII Grossly Neurologically Intact, left upper extremity neurovascularly intact with good sensation and distal fingertips MSK: Moves all extremities spontaneously : No Wilkins in place Psych: Normal mood and affect Lab and Diagnostics Result Diagram: 02/05/1745402/05/17454 X-Rays, CTs and MRIs PROCEDURE: X-RAY LEFT ELBOW COMPLETE, MINIMUM THREE VIEWS ([id number]) IMPRESSION: 1. No displaced fracture seen. If there is continued pain, followup exam or additional imaging such as MRI or CT could be performed for further assessment. 2. Anterior soft tissue calcification likely related to arteriovenous fistula in this dialysis patient. 3. Prominent olecranon bone spur. Dictated by: Regino HORAN Interpreted: Diana Rogers MD on 02/05/2017 at 16:19 Transcribed by: RONNI on 02/05/2017 at 16:21 PROCEDURE: CT BRAIN WITHOUT CONTRAST ([id number]) IMPRESSION: No intracranial abnormality. Dictated by: Christoph Box M.D. on 02/04/2017 at 17:21 Approved by: Christoph Box M.D. on 02/04/2017 at 17:23 PROCEDURE: CT CERVICAL SPINE WITHOUT CONTRAST ([id number]) IMPRESSION: No acute bony abnormality in the cervical spine. Moderate disc degenerative disease at C5-6 and C6-7. Acute fracture seen in the margins of the lower cervical spine axial images involving the left clavicle. Dictated by: Christoph Box M.D. on 02/04/2017 at 17:23 Approved by: Christoph Box M.D. on 02/04/2017 at 17:27 PROCEDURE: X-RAY LEFT CLAVICLE, COMPLETE ([id number]) IMPRESSION: Mid shaft left clavicular fracture, minimally angulated. No fracture margin displacement or additional injury is seen. Dictated by: Troy Morrell M.D. on 02/04/2017 at 16:32 Approved by: Troy Morrell M.D. on 02/04/2017 at 16:34 Assessment & Plan Pleasant 51-year-old male presents with left clavicle fracture after acute syncopal episode due to hypovolemia hypotension post dialysis treatment for end- stage renal disease secondary to IgA nephropathy. Hospital day 2 1. Hypovolemic hypotension, present on admission, resolved - Syncope likely secondary to hypovolemic hypotension - 1.5 L IVF given in the ER on 02/04/2017, with admitting physician starting Midodrine 5 mg by mouth 3 times a day at 08:00 12:00 and 16:00, - one time 250 mL bolus on 02/05/2017 - Nephrology consulted with recommendations of normal saline at 150 mL an hour overnight 02/05/2017 - Plan for dialysis on 02/06/2017 - Patient is regularly followed by picker Dr. De Leon 2. Left clavicular fracture, present on admission, stable - Orthopedic surgery consulted from ED - Recommendations for patient to remain in left arm sling with follow-up in one week at orthopedic office - Morphine IV available wall inpatient overnight for breakthrough pain - Tramadol 50 mg available every 12 hours, discussed with pharmacology given patient's renal clearance - Tramadol appears to be controlling the patient's pain better than morphine 3. End-stage renal disease on hemodialysis, chronic, present on admission - Secondary to IgA nephropathy - Nephrology consulted - Patient will be moved to [facility] on telemetry given need for PCC beds - Consider dialysis on 02/06/2017 - Continue outpatient Cinacalcet 4. Syncope, present on admission, acute under evaluation considered stable - Again likely secondary to hypovolemic hypotension, given presentation of hypovolemia in the ED with history of low blood pressure after dialysis - Telemetry and place for possible arrhythmias - TSH to be drawn given patient's renal transplant drugs - Consider increasing patient's standard dry weight for dialysis therapy 5. History of Renal transplant, present on admission, stable - Complicated by graft failure - Continue patient's immunosuppression therapy with tacrolimus and mycophenolate - We will draw tacrolimus levels for the a.m. Bowel regimen available when necessary with docusate senna and MiraLAX recommendations for docusate given opiate constipation DVT prophylaxis with subcutaneous heparin GI prophylaxis not indicated at this time CODE STATUS full Disposition: Home tomorrow after dialysis treatment barring unforeseen circumstances. Patient has no PCP for follow-up and only uses his picker. Pain Evaluation: Adequate Pain Control GI Prophylaxis: Not indicated VTE Prophylaxis: Sub-Q Heparin (Unfractionated) Resuscitation Status: CPR: Attempt Resuscitation Attending Statement The patient was seen and examined together with Dr. Schaefer on 02/05/2017 and I agree with the history, exam and plan as outlined in the note above. . Steffen Schaefer DO Feb 05, 2017 12:37 Piotr Hope MD Feb 06, 2017 16:08
--- NOTE | 2017-02-05 19:25 | NUR ---
Transfer To [facility] room 1021 at 18:50. Report received from FRANCO Montano RN. Pt complains of shoulder pain 07/08 and asks for pain meds. Morphine given. Oriented to room, call light in hand. Eating dinner at this time. Report given to restaurant shift leader RNGustavo.
[2017-02-06 05:26] VITALS: BP 112/66; PULSE 66; RESP 17; O2SAT 98
[2017-02-06 06:06] VITALS: PULSE 71
--- NOTE | 2017-02-06 06:43 | NUR ---
Pain c/o clavicle pain x2 this shift. Prn morphine administered and effective. Currently resting without any complaints.
[2017-02-06 07:11] LABS: BASOPHILS % (AUTO) 0.6 % (0-3); EOSINOPHILS % (AUTO) 3.8 % (0-5); MONOCYTES % (AUTO) 7.8 % (4-12); Mean Corpuscular Hemoglobin 33.1 pg (27.0-35.0); NEUTROPHILS % (AUTO) 64.2 % (40-74); Platelet Count 157 bil/L (150-400)
[2017-02-06 08:10] LABS: Magnesium 2.2 mg/dL (1.6-2.6); Phosphorus 7.1 mg/dL (2.5-4.9)
[2017-02-06 08:14] VITALS: BP 106/68; PULSE 71; RESP 16; O2SAT 99
[2017-02-06 09:16] VITALS: PULSE 77
[2017-02-06] MEDS: Heparin 5,000 Unit/mL Inj SUBQ SCH (10:06)
--- NOTE | 2017-02-06 11:16 | PCM.DIMED ---
Discharge Instructions Date of Service Feb 06, 2017 Dates of Hospitalization Feb 04, 2017 at 18:29 Discharge Diagnosis Discharge Diagnosis Hypotension following dialysis, ESRD, Fall, L clavicle fracture, HTN, DVT Test Results [facility] Diagnostic Imaging Department [place], [place] [id number] Patient Name: MICHEAL GORDON MR#: [id number] Location: [facility] Ordering Phys: Alexis Giraldo MD Date of Service: 02/05/17 1434 PROCEDURE: X-RAY LEFT ELBOW COMPLETE, MINIMUM THREE VIEWS ([id number]) INDICATIONS: LEFT ELBOW PAIN TECHNIQUE: 3 views of the elbow were acquired. COMPARISON: [facility], XA, ARTERIO VENOUS FISTULOGRAM (PNL), 2015, 11:08. FINDINGS: Bones: No fractures or dislocations. No suspicious bony lesions. Prominent bones are olecranon process. Soft tissues: No elbow joint effusion. There is a large ossified body measuring roughly 2.5 cm in the anterior medial aspect of the elbow. There is calcification and soft tissue swelling adjacent to olecranon. There multiple surgical clips. IMPRESSION: 1. A large calcified body in the anterior medial aspect of the elbow. If clinically indicated, advanced imaging such as CT or MRI may be helpful for further evaluation. 2. Prominent olecranon bone spur. There is calcification and soft tissue swelling over the olecranon consistent with enthesopathy. Dictated by: Regino Burger [facility] Interpreted: Diana Rogers MD on 02/05/2017 at 16:19 Transcribed by: RONNI on 02/05/2017 at 16:21 Approved by: Diana Rogers M.D. on 02/05/2017 at 21:01 [facility] Diagnostic Imaging Department [place], [place] [id number] Patient Name: MICHEAL GORDON MR#: [id number] Location: [facility] Ordering Phys: Agustin Medellin DO Date of Service: 02/04/17 1642 PROCEDURE: CT BRAIN WITHOUT CONTRAST ([id number]) INDICATIONS: syncope, head injury TECHNIQUE: Noncontrast 4.5 mm thick angled axial sections acquired from the foramen magnum to the vertex, with coronal reformats. COMPARISON: [facility], CT, BRAIN W/O CONTRAST, 02/18/2010, 15:51. FINDINGS: Image quality: Good CSF spaces: Basal cisterns are patent. No extra-axial fluid collections. Ventricles are normal in size and shape. Brain: No midline shift. No intracranial masses or hemorrhage. Cornelius-white matter interface is normal. Skull and face: Calvarium and visualized facial bones are intact, without suspicious lesions. Sinuses: Visualized sinuses and mastoids are clear. IMPRESSION: No intracranial abnormality. Dictated by: Christoph Box M.D. on 02/04/2017 at 17:21 Approved by: Christoph Box M.D. on 02/04/2017 at 17:23 [facility] [place] [address] Patient Name: MICHEAL GORDON MR#: [id number] Location[place] [facility] [place] Ordering Phys: Agustin Medellin DO Date of Service: 02/04/17 1642 PROCEDURE: CT CERVICAL SPINE WITHOUT CONTRAST ([id number]) INDICATIONS: syncope, head injury TECHNIQUE: Noncontrast 3 mm thick sections acquired from the skull base to the T4 level. Sagittal and coronal reformats were then constructed. For radiation dose reduction, the following was used: automated exposure control, adjustment of mA and/or kV according to patient size. COMPARISON: None. FINDINGS: Image quality: Excellent. Bones: On the margin of the image there is a mid shaft left clavicular fracture. No fracture or dislocation of the cervical spine is seen. There is moderate disc degenerative disease at the C5-6 and C6-7 levels. Visualized superior ribs are intact. Soft tissues: Prevertebral soft tissues are normal in thickness. No paravertebral hematomas. No apical pneumothoraces. Bilateral to nsilliths are present. IMPRESSION: No acute bony abnormality in the cervical spine. Moderate disc degenerative disease at C5-6 and C6-7. Acute fracture seen in the margins of the lower cervical spine axial images involving the left clavicle. Dictated by: Christoph Box M.D. on 02/04/2017 at 17:23 Approved by: Christoph Box M.D. on 02/04/2017 at 17:27 [facility] [place] [address] Patient Name: MICHEAL GORDON MR#: [id number] Location: SED Ordering Phys: Agustin Medellin DO Date of Service: 02/04/17 164 PROCEDURE: X-RAY CHEST ONE VIEW, PORTABLE ([id number]) INDICATIONS: syncope, left collar bone injury TECHNIQUE: One view of the chest was acquired. COMPARISON: [facility], CR, CHEST 2VW, 05/31/2012, 17:11. FINDINGS: Surgical changes and devices: assistant professor of spanish leads are seen over the chest. Vascular clips in the gallbladder bed. Lungs and pleura: No pleural effusions or pneumothorax. Lungs are clear. Mediastinum: Mediastinal contours appear normal. Heart size is normal. Bones and chest wall: No suspicious bony lesions. Old healed clavicular fractures. Overlying soft tissues appear unremarkable. IMPRESSION: Acute disease is not seen in the chest. Dictated by: Christoph Box M.D. on 02/04/2017 at 17:20 Approved by: Christoph Box M.D. on 02/04/2017 at 17:21 [facility] Diagnostic Imaging Department [place], [place] [id number] Patient Name: MICHEAL GORDON MR#: [id number] Location: SED Ordering Phys: Agustin Medellin DO Date of Service: 02/04/171641 PROCEDURE: X-RAY LEFT CLAVICLE, COMPLETE ([id number]) INDICATIONS: syncope, left collar bone injury TECHNIQUE: 2 views of the clavicle were acquired. COMPARISON: [facility], CT, CT CERVICAL SPINE WO CON, 02/04/2017, 16 :59. [facility], CR, XR SHOULDER MIN 2VW LT, 02/04/2017, 16:32. FINDINGS: Bones: No dislocations. No suspicious bony lesions. There is a mid shaft left clavicular fracture, which was initially visualized at the margin of the image field of view during cervical CT scanning earlier today. This appears in apposition, and likely is only slightly angulated. No additional trauma to the seen. Soft tissues: No suspicious soft tissue calcifications. IMPRESSION: Mid shaft left clavicular fracture, minimally angulated. No fracture margin displacement or additional injury is seen. Dictated by: Troy Morrell M.D. on 02/04/2017 at 16:32 Approved by: Troy Morrell M.D. on 02/04/2017 at 16:34 [facility] Diagnostic Imaging Department [place] [id number] Patient Name: MICHEAL GORDON MR#: [id number] Location[place] [facility] [place] Ordering Phys: YURI MIMS MD Date of Service: 02/04/17 1639 PROCEDURE: X-RAY LEFT SHOULDER, MINIMUM TWO VIEWS ([id number]) INDICATIONS: FALL TECHNIQUE: 3 views of the shoulder were acquired. COMPARISON: [facility], CT, CT CERVICAL SPINE WO CON, 02/04/2017, 16 :59. FINDINGS: Bones: Acute nondisplaced mid clavicular shaft fracture. No fracture of the scapula or humerus or visualized ribs. No suspicious bony lesions. Visualized ribs appear intact. Soft tissues: No suspicious soft tissue calcifications. IMPRESSION: Nondisplaced left clavicular fracture. Best seen on the CT of the cervical spine. Dictated by: Christoph Box M.D. on 02/04/2017 at 17:28 Approved by: Christoph Box M.D. on 02/04/2017 at 17:28 Diet Renal Diet Activity No restrictions Call your provider Fever or Chills, Shortness of breath, Bleeding, Chest pain, Vomitting, Excessive diarrhea, Weakness (unilateral) Patient Instructions Follow-up plan Please f/u with ortho in one week, wear the sling as recommended F/U with your dialysis center Sat F/U with your order entry representative in 2 weeks F/U with PCP in 2 weeks Kelin Rosado DO Feb 06, 2017 11:15
[2017-02-06] MEDS ORDERED: MIDO5TAB PO (11:19)
[2017-02-06] MEDS ORDERED: OXYC5TAB72 PO ×2 (11:24→11:34)
--- NOTE | 2017-02-06 12:05 | NUR ---
Off Unit to Dialysis; Pt left [facility] unit to [facility] unit for dialysis prior to dc. A&Ox3, stable condition, IV SL, did receive pain medication prior to transfer. shear operator helper Letha aware and ready for pt. Pt left via bed with chart. Addendum: 02/06/17 at 1644 by JESSICA COTE RN Returned from [facility] for dialysis back to [facility], 1021, at 1640 via bed. Chart with pt. Pt A&Ox3, stable.
--- NOTE | 2017-02-06 12:23 | PCM.PNNEPH ---
Subjective Date of Service Feb 06, 2017 Subjective pain on left mid clavicular area improved BP, wants to go home after HD. Exam Vital Signs Vital Sign - Last Date Time Temp Pulse Resp B/P Pulse Ox O2 Delivery O2 Flow Rate FiO2 02/06/17 09:16 77 02/06/17 08:14 36.6 16 106/68 99 Room Air Intake and Output 02/05/17 02/05/17 02/06/17 Cumulative From/Thru 15:00 23:00 07:00 02/04/17 16:41 - 02/06/17 06:33 Intake Total 1199 ml 400 ml 3399 ml Balance 1199 ml 400 ml 3399 ml Intake Oral 880 ml 400 ml 2080 ml IV Total 319 ml 0 ml 1319 ml # Voids 0 0 1 Exam General appearance: Awake, alert and oriented x3. No acute distress. HEENT: No pallor. No icteric sclerae. Sutured noted above the left eyebrow. No active bleeding. No lymphadenopathy. No thyroid enlargement. No JVD. Lab and Diagnostics Result Diagram: 02/06/1762102/06/17621 X-Rays, CTs and MRIs PROCEDURE: X-RAY LEFT ELBOW COMPLETE, MINIMUM THREE VIEWS ([id number]) IMPRESSION: 1. No displaced fracture seen. If there is continued pain, followup exam or additional imaging such as MRI or CT could be performed for further assessment. 2. Anterior soft tissue calcification likely related to arteriovenous fistula in this dialysis patient. 3. Prominent olecranon bone spur. Dictated by: Regino Burger RRA Interpreted: Diana Rogers MD on 02/05/2017 at 16:19 Transcribed by: RONNI on 02/05/2017 at 16:21 PROCEDURE: CT BRAIN WITHOUT CONTRAST ([id number]) IMPRESSION: No intracranial abnormality. Dictated by: Christoph Box M.D. on 02/04/2017 at 17:21 Approved by: Christoph Box M.D. on 02/04/2017 at 17:23 PROCEDURE: CT CERVICAL SPINE WITHOUT CONTRAST ([id number]) IMPRESSION: No acute bony abnormality in the cervical spine. Moderate disc degenerative disease at C5-6 and C6-7. Acute fracture seen in the margins of the lower cervical spine axial images involving the left clavicle. Dictated by: Christoph Box M.D. on 02/04/2017 at 17:23 Approved by: Christoph Box M.D. on 02/04/2017 at 17:27 PROCEDURE: X-RAY LEFT CLAVICLE, COMPLETE ([id number]) IMPRESSION: Mid shaft left clavicular fracture, minimally angulated. No fracture margin displacement or additional injury is seen. Dictated by: Troy Morrell M.D. on 02/04/2017 at 16:32 Approved by: Troy Morrell M.D. on 02/04/2017 at 16:34 Plan Impression ASSESSMENT: 1. Syncope secondary to intravascular volume depletion. 2. Hypotension secondary to intravascular volume depletion. 3. Head injury. 4. Nondisplaced left clavicle fracture. 5. End-stage renal disease, on hemodialysis every Wednesday, , Wednesday. 6. History of IgA nephropathy. 7. Status post donor kidney transplant in 2002 complicated by graft failure eight years later. PLAN: HD today without UF. D/c midodrine. Fluid intake encouraged. Per renal, pt can be d/c'd home after HD if stable. Maggie Modi MD Feb 06, 2017 12:23
[2017-02-06 16:53] VITALS: BP 106/70; PULSE 73; RESP 18; O2SAT 97
--- NOTE | 2017-02-06 17:19 | NUR ---
Discharge Pt discharged to home with mother at 1715. Walked off unit post return from dialysis. A&Ox3, FAY - limited to LUE d/t clavicle fx, IV dcd intact, Pain present - received pain medication prior to leaving, Hard copy script provided to pt, CareNotes provided and instructions given re: dc dx and s/sx to seek medical attention for. Pt aware of available OTC stool softeners d/t constipating effects of narcotics. All personal belongings in hand at dc.
--- NOTE | 2017-02-06 17:25 | NUR ---
Dialysis note 4 hr HD tx prior to discharge. 500ml net UF removed. 2 15 g needles to RU fistula. QB progressively decreased thru tx for increasing venous pressures. QB 350 thru most of tx. See DTR for complete vitals. Pt ate small lunch and rested comfortably. Gauze and tape post tx. Report given and pt returned to floor stable.
--- NOTE | 2017-02-06 22:22 | PCM.DC.MED ---
Discharge Summary Date of Service Feb 06, 2017 Dates of Hospitalization Date of Hospital Admission Feb 04, 2017 at 18:29 Date of Discharge: Feb 06, 2017 Providers: Admitting Physician: Taurus Riggs MD Primary Care Physician: Luan Guo MD Attending Physician: Taurus Riggs MD Diagnosis at Time of Discharge Diagnosis at Time of Discharge Hypotension following dialysis, ESRD, Fall, L clavicle fracture, HTN, DVT Consultations Orthopedics, nephrology Procedures XRay, CTs & MRIs PROCEDURE: X-RAY LEFT ELBOW COMPLETE, MINIMUM THREE VIEWS ([id number]) IMPRESSION: 1. No displaced fracture seen. If there is continued pain, followup exam or additional imaging such as MRI or CT could be performed for further assessment. 2. Anterior soft tissue calcification likely related to arteriovenous fistula in this dialysis patient. 3. Prominent olecranon bone spur. Dictated by: Regino LERNER Interpreted: Diana Rogers MD on 02/05/2017 at 16:19 Transcribed by: RONNI on 02/05/2017 at 16:21 PROCEDURE: CT BRAIN WITHOUT CONTRAST ([id number]) IMPRESSION: No intracranial abnormality. Dictated by: Christoph Box M.D. on 02/04/2017 at 17:21 Approved by: Christoph Box M.D. on 02/04/2017 at 17:23 PROCEDURE: CT CERVICAL SPINE WITHOUT CONTRAST ([id number]) IMPRESSION: No acute bony abnormality in the cervical spine. Moderate disc degenerative disease at C5-6 and C6-7. Acute fracture seen in the margins of the lower cervical spine axial images involving the left clavicle. Dictated by: Christoph Box M.D. on 02/04/2017 at 17:23 Approved by: Christoph Box M.D. on 02/04/2017 at 17:27 PROCEDURE: X-RAY LEFT CLAVICLE, COMPLETE ([id number]) IMPRESSION: Mid shaft left clavicular fracture, minimally angulated. No fracture margin displacement or additional injury is seen. Dictated by: Troy Morrell M.D. on 02/04/2017 at 16:32 Approved by: Troy Morrell M.D. on 02/04/2017 at 16:34 Brief History Pt is a 51 y.o. male with a hx of ESRD on HD who presented to the hospital after he had 3 episodes of syncope today . Patient had dialysis today and was doing fine . He stated he insisted with staff to complete his dialysis time because for some reason the nurse wanted to cut it shorter this time . He stated he felt fine after dialysis and drove home . Later he started feeling lightheaded, then while trying to stand up form sitting position he experienced a syncopal episode causing him to fall to the ground. He lost consciousness a couple of minutes and had another episode while trying to stand . He had a third episode trying to reach the phone and was able to call his mother to come over after the 3rd episode. EMT was called and he was brought to the hospital. Patient suffered a laceration of his dyana-orbital area on the left and a left clavicle fracture. His systolic BP was 80 . His only complaints is shoulder pain otherwise denies chest pain, shortness of breath , no palpitation, no abdominal pain, no nausea , no vomiting no fever, no chills Hospital Course Pleasant 51-year-old male presents with left clavicle fracture after acute syncopal episode due to hypovolemia hypotension post dialysis treatment for end- stage renal disease secondary to IgA nephropathy. Hospital day 2 1. Hypovolemic hypotension, present on admission, resolved.Syncope likely secondary to hypovolemic hypotension. Patient is given midodrine and IV fluids. , - Nephrology consulted with recommendations. Nephrology is consulted and patient underwent dialysis prior to discharge. Nephrology adjusted his dialysis fluids thus, no new meds were added. On the day of discharge patient is ambulating feeling better and wanting to go home. 2. Left clavicular fracture, present on admission, stable: - Orthopedic surgery consulted from ED. Recommendations for patient to remain in left arm sling with follow-up in one week at orthopedic office - Pain control was given for both his hospital stay and discharge 3. End-stage renal disease on hemodialysis, chronic, present on admission: This is secondary to IgA nephropathy, nephrology is consulted, patient was more to [facility]. Dialysis was done on 02/06/2017. Continue all his nephrology meds 4. Syncope, present on admission, acute under evaluation considered stable: Much improved on the day of discharge 5. History of Renal transplant, present on admission, stable - Complicated by graft failure We continued patient's immunosuppression therapy with tacrolimus and mycophenolate. Tacrolimus level was drawn and within normal limits Exam Vital Signs (Last) Date Time Temp Pulse Resp B/P Pulse Ox O2 Delivery O2 Flow Rate FiO2 02/06/17 16:53 36.7 73 18 106/70 97 Room Air Exam Gen.: No acute distress. Diffuse sandpaperlike rash over the face only HEENT normocephalic atraumatic Heart: Regular rate and rhythm no S3-S4 Lungs: Clear to auscultation bilaterally no crackles or wheezes Abdomen nontender nondistended normal bowel sounds Neuro: No focal deficits Psych: No anxiety Test 02/04/17 16:45 02/06/17 06:22 Troponin T < 0.010ug/L (0.0-0.011) White Blood Count 5.3th/mm3 (3.8-10.1) Red Blood Count 4.17mil/mm3 (4.40-5.80) Hemoglobin 13.8g/dL (13.8-17.2) Hematocrit 41.7% (41.0-50.0) Mean Corpuscular Volume 100.0fL (81-100) Mean Corpuscular Hemoglobin 33.1pg (27.0-35.0) Mean Corpuscular Hemoglobin Concent 33.1% (32.0-37.0) Red Cell Distribution Width 13.7% (12.3-15.4) Platelet Count 157bil/L (150-400) Neutrophils (%) (Auto) 64.2% (40-74) Lymphocytes (%) (Auto) 23.4% (14-46) Monocytes (%) (Auto) 7.8% (4-12) Eosinophils (%) (Auto) 3.8% (0-5) Basophils (%) (Auto) 0.6% (0-3) Sodium Level 135mEq/L (134-144) Potassium Level 4.3mEq/L (3.5-5.2) Chloride Level 90mEq/L (97-108) Carbon Dioxide Level 22mmol/L (18-29) Blood Urea Nitrogen 48mg/dL (6-24) Creatinine 12.77mg/dL (0.76-1.27) Estimat Glomerular Filtration Rate 4mL/min (>59) Glucose Level 86mg/dL (60-99) Calcium Level 7.7mg/dL (8.5-10.1) Phosphorus Level 7.1mg/dL (2.5-4.9) Magnesium Level 2.2mg/dL (1.6-2.6) Total Bilirubin 0.4mg/dL (0.0-1.2) Aspartate Amino Transf (AST/SGOT) 17U/L (0-50) Alanine Aminotransferase (ALT/SGPT) 19U/L (0-44) Alkaline Phosphatase 68U/L (25-150) Pro-B-Type Natriuretic Peptide 2427pg/mL (0-121) Total Protein 6.9g/dL (6.4-8.4) Albumin 3.9g/dL (3.4-5.0) Triglycerides Level 208mg/dL (0-149) Cholesterol Level 162mg/dL (100-199) LDL Cholesterol, Calculated 88.400mg/dL (0-99) VLDL Cholesterol 41.600mg/dL HDL Cholesterol 32mg/dL (>39) Cholesterol/HDL Ratio 5.06 (0.0-4.4) Procalcitonin 0.49ng/mL (0.00-0.08) Thyroid Stimulating Hormone (TSH) 2.840uIU/mL (0.450-4.500) Free Thyroxine 1.36ng/dL (0.82-1.77) Discharge Medications Discharge Medications Aspirin (Aspirin) 81 Mg Tablet 81 MG PO DAILY (Reported) Cholecalciferol (Vitamin D3) (Vitamin D) 50,000 Unit Capsule 50,000 UNIT PO qweek (Reported) Cinacalcet HCl (Sensipar) 60 Mg Tablet 90 MG PO DAILY (Reported) Lanthanum Carb Chew (Fosrenol Chew) 1,000 Mg Chew 1,000 MG PO TIDWM (Reported) Mycophenolate Mofetil (Cellcept) 500 Mg Tablet 500 MG PO DAILY (Reported) Cornelius-3 Fatty Acids (Fish Oil Concentrate) 1,000 Mg Capsule 1,000 MG PO DAILY ( Reported) Tacrolimus (Prograf) 1 Mg Capsule 2 MG PO BID (Reported) Vit B Cmplx 3/FA/Vit C/Biotin (Isabel-Dorene Rx Tablet) 1 Each Tablet 1 EACH PO DAILY (Reported) Vitamin E Acetate (Vitamin E) 400 Unit Capsule 400 UNIT PO DAILY (Reported) As needed Acetaminophen (Acetaminophen) 325 Mg Tablet 325-650 MG PO HS PRN PRN For Pain ( Reported) oxyCODONE (oxyCODONE) 5 Mg Tablet 5 MG PO Q4H PRN PRN For Moderate Pain Prescribed by: KELIN MORA DO Followup Plan Follow-up plan Please f/u with ortho in one week, wear the sling as recommended F/U with your dialysis center Wed F/U with your tours hostess in 2 weeks F/U with PCP in 2 weeks Discharge Diet: Renal Diet Discharge Activity: No restrictions Kelin Mora DO Feb 06, 2017 22:22
--- NOTE | 2017-02-08 13:19 | CONS ---
[address] [address] CONSULTATION REPORT PATIENT: MICHEAL GORDON : 1965 MR#: [id number] ADMIT: 02/04/2017 JOB ID: [id number] DATE OF SERVICE: ORTHOPEDIC NOTE CPT 84363 02/05/2017 FOLLOWUP CONSULT NOTE: Patient did have x-rays on his left elbow as well, where he was complaining of some left elbow pain. Three views of the elbow were taken. No fracture seen. Of significance, however, the patient did have a large calcified mass over the anteromedial aspect of the elbow, anterior to the distal humerus and over the medial aspect in the soft tissues. I am not sure if he has had any x-rays there in the past. It does not appear that he has had any. He also has some calcification along the triceps tendon insertion. I am not exactly sure about the etiology of the calcification, but this certainly may well bear further workup. The patient does have a clavicle fracture. For him to undergo any further testing on the elbow, such as a possible MRI scan, he would 1st need to be able to maneuver his elbow and his shoulder better. This is just something to consider in the future for further workup of the calcified density. CC: [facility]
[2017-04-16] MEDS ORDERED: LACT10SO27 PO (17:11)
[2017-04-16] MEDS ORDERED: OXYC-407 PO (17:11)
== END 2017-02-06 17:23 | disposition home or self-care (01) | DRG 312 ==
LOC: SED 16:33 → PCC 18:29 → OSC 02-05 18:50
PROVIDERS: ADMIT Internal Medicine; ATTEND Internal Medicine
PROC: 0HQ1XZZ Repair Face Skin, External Approach (ICD-10-PCS; principal; 2017-02-04)
PROC: 5A1D00Z (ICD-10-PCS; 2017-02-06)
DX: I95.3 Hypotension of hemodialysis (principal); N18.6 End stage renal disease; N02.8 Recurrent and persistent hematuria with other morphologic changes; Z87.891 Personal history of nicotine dependence; R55 Syncope and collapse; S01.112A Laceration without foreign body of left eyelid and periocular area, initial encounter; W18.39XA Other fall on same level, initial encounter; Y92.019 Unspecified place in single-family (private) house as the place of occurrence of the external cause; Z99.2 Dependence on renal dialysis; M25.522 Pain in left elbow; S42.025A Nondisplaced fracture of shaft of left clavicle, initial encounter for closed fracture

== ENCOUNTER 2017-04-19 00:21 | Day surgery (SDC) | payer MEDICARE, OTHER ==
[~2017-04-19] VITALS: Ht 175.3 cm; Wt 89.0 kg
[2017-04-19] VITALS (10 sets, daily range): BP systolic 99–107; BP diastolic 54–64; PULSE 68–80; RESP 16–20; O2SAT 94–99
[~2017-04-19 00:21] MED LIST changes: -AMLO10TA3 PO; -CARV25TA2 PO; +CHOL500050 PO; -COLC0.6C3 PO; -ERGO500050 PO; -FRSM80T PO; -HYDR-3090 PO; +LACT10SO27 PO; +LANT1000 PO; -NEPHVIT PO; +OXYC-407 PO; -TAMS0.4C29 PO; +VIT1TABL57 PO; -ZYL100 PO; -[UNRECOGNIZED DRUG - CODE] PO
--- NOTE | 2017-04-19 07:25 | NUR ---
ADMISSION NOTE MALE PT ADMITTED FOR FISTULOGRAM. DISCUSSED PLAN OF CARE WITH PT. SEE ADMIT AND FLOW SHEET
[2017-04-19] MEDS ORDERED: VIT D PO (08:00)
[2017-04-19] MEDS ORDERED: VIT E PO (08:00)
[2017-04-19 08:04] LABS: INR 0.94 ratio
[2017-04-19 08:08] LABS: EOSINOPHILS % (AUTO) 2.4 % (0-5); MONOCYTES % (AUTO) 7.8 % (4-12); Mean Corpuscular Hemoglobin 32.3 pg (27.0-35.0); NEUTROPHILS % (AUTO) 65.9 % (40-74); Platelet Count 174 bil/L (150-400)
[2017-04-19] MEDS ORDERED: Heparin 10,000 Unit/1,000 mL NS Premix IV ONE (08:11)
[2017-04-19] MEDS ORDERED: Heparin 1,000 Unit/mL 10 mL Inj ONE (08:11)
[2017-04-19] MEDS ORDERED: fentaNYL-PF 50 mCg/mL 2 mL Inj ONE ×2 (09:22→10:04)
[2017-04-19] MEDS ORDERED: Nitroglycerin 50,000 mcg/250 mL D5W Premix IV ONE (09:35)
--- NOTE | 2017-04-19 10:20 | NUR ---
POST PROCEDURE NOTE RETURNED FROM TOUCH UP PAINTER HAND. SUTURE IN PLACE. SEE FLOW SHEET
--- NOTE | 2017-04-19 11:26 | DRSVH ---
PROCEDURE: 1. Right upper extremity arteriovenous fistulogram. 2. Angioplasty of venous limb at level of mid humerus. 3. Angioplasty of central aspect of cephalic arch. 4. Conscious sedation x 50 minutes. INDICATIONS: Malfunctioning arteriovenous fistula. COMPARISON: None. TECHNIQUE: Informed, written consent from the patient was obtained prior to the procedure. Patient wa s brought to the angiography suite, and conscious sedation was administered intravenously by senior care staff, while continuous cardiorespiratory monitoring was performed. Maximal sterile barrier t echnique, hand hygiene, skin preparation, and sterile ultrasound technique (if ultrasound was utilize d) was followed. A mask, sterile gown, sterile gloves, a large sterile sheet, hand hygiene, and 2% ch lorhexidine or iodine was utilized for skin antisepsis. The right upper extremity prepped and draped sterilely, and the skin and subcutaneous tissues overlying the peripheral aspect of the venous limb w ere infused with lidocaine. The peripheral aspect of the venous limb was accessed antegrade with a mi cropuncture set. Contrast was injected for arteriovenous fistulogram. Intravenous heparin was adminis tered. A Glidewire was advanced into the inferior vena cava with the aid of a 4 Swazi nontapered ang led catheter, and was exchanged for an exchange length 035 J-wire. A 6 Swazi sheath was advanced. A 40 mm long balloon was used to angioplasty the venous limb at the level of the mid humerus to 10.2 mm diameter, as well as the central aspect of the cephalic arch. Angioplasty was repeated twice at the cephalic arch. Several 300 mcg aliquots of intravenous nitroglycerin were administered. Repeat AV fis tulogram was performed following wire removal. Sheath was removed, and the venotomy was closed with p ursestring closure. FLUOROSCOPY TIME: 5.4 minutes FINDINGS: Recurrent high-grade stenosis of the venous limb at the level of the mid humerus is presen t, resolved following 10.2 mm angioplasty. There is high-grade stenosis in the cephalic arch centrall y, resolved following 10.2 mm angioplasty and subsequent nitroglycerin administration and wire remova l. IMPRESSION: 1. Recurrent high-grade stenosis of the venous limb at the level of the mid humerus, resolved followi ng 10.2 mm angioplasty. 2. Recurrent high-grade stenosis of the central cephalic arch, resolved following 10.2 mm angioplasty , intravenous nitroglycerin administration, and wire removal. Dictated by: Mark Leavitt M.D. on 04/19/2017 at 11:18 Approved by: Mark Leavitt M.D. on 04/19/2017 at 11:25
--- NOTE | 2017-04-19 13:30 | NUR ---
DISCHARGE NOTE INSTRUCTIONS GIVEN. HOME WITH FRIEND
== END 2017-04-19 23:59 | disposition home or self-care (01) ==
LOC: SOUO 00:21
PROVIDERS: ATTEND Radiology Diagnostic Radiology
DX: T82.858A Stenosis of other vascular prosthetic devices, implants and grafts, initial encounter (principal); Y83.2 Surgical operation with anastomosis, bypass or graft as the cause of abnormal reaction of the patient, or of later complication, without mention of misadventure at the time of the procedure; I87.1 Compression of vein; T86.12 Kidney transplant failure; N18.6 End stage renal disease; Z99.2 Dependence on renal dialysis; D63.1 Anemia in chronic kidney disease; I12.0 Hypertensive chronic kidney disease with stage 5 chronic kidney disease or end stage renal disease
CPT/HCPCS: 36415; 36902; 80048; 85025; 85610; 85730; 99152; 99153; C1725; C1769; J1644; J2250; J3010; Q9967